=== PATIENT | male | born 1995 | race Caucasian/White ===

== ENCOUNTER 2017-10-12 14:03 | Emergency (ER) | payer OTHER ==
[~2017-10-12] VITALS: Ht 188 cm; Wt 113.9 kg
[2017-10-12 14:05] VITALS: TEMP 36.8; Ht 188 cm; Wt 113.9 kg
[2017-10-12] MEDS ORDERED: LIDOCAINE 1% BUFFERED INJ 20 ML VIAL INFIL STA (14:11)
--- NOTE | 2017-10-12 14:33 | EMERGENCY ROOM VISIT NOTE ---
ED Visit Note First contact with patient: 14:06 CHIEF COMPLAINT: Right fourth and fifth finger lacerations from circular saw HISTORY OF PRESENT ILLNESS: This [id number] 22-year-old male patient presents to the emergency department, ambulatory, approximately 30 minutes after cutting the right fourth and fifth fingers with a circular saw. The bleeding has not stopped. Denies weakness or numbness of the finger. The patient has full range of motion of the fingers. The patient rates the pain as pulsing and 7/10. The patient denies any other injuries. The patient's tetanus shot is up to date. REVIEW OF SYSTEMS: A 6 system review of systems was completed with positives and pertinent negatives listed in the HPI. ALLERGIES: None MEDICATIONS: None PMH: None SOCIAL HISTORY: Patient lives locally with family. He denies drug, alcohol, tobacco use. PHYSICAL EXAM: Vital Signs: Reviewed Nurse's notes, vital signs stable. GENERAL : This is a 22-year-old white male, in no acute distress, well developed, well nourished. SKIN: There is a 1.5 cm long laceration on the dorsal aspect of the right 5th finger. A portion of the nail has been cut off with a jagged portion remaining. The edges gape apart with traction. There is no foreign material in the wound and it looks clean. There is moderate bleeding. There is exposed bone. No deep structures such as tendons, or significant blood vessels are seen in the base of the wound. Extension and flexion of the finger is full and strong. More superficial lacerations of the distal lateral aspect of the right 4th digit. No deep structures seen at the base of the wound. Full range of motion of the wrist and all fingers. Capillary refill less than 2 seconds. Normal sensation to light and sharp touch. RADIOLOGY: R HAND MIN 3 VIEWS ROUTINE CLINICAL HISTORY: RIGHT 4-5 finger laceration, circular saw. COMPARISON: None FINDINGS: Note is made of a comminuted moderately displaced fracture which involves the mid to distal shaft distal tuft of the distal phalanx of the right fifth finger. Soft tissue irregularity suggestive of a laceration of the distal right fourth digit is noted without associated fracture. Carpal bones are intact. No unexpected radiopaque foreign bodies are noted. IMPRESSION: 1. Comminuted, displaced fracture of the distal phalanx of the right fifth finger. 2. Laceration of the right fourth finger with no right fourth finger fracture. Electronically signed by: Lennox Bridges M.D. 10/12/2017 3:46 PM Dictated Date/Time: 10/12/2017 3:43 PM EMERGENCY DEPARTMENT COURSE: I examined the patient. Verbal consent was obtained to perform the procedure. The procedure was performed by the physician assistant therapy aide student. 4 mL's of 1% buffered lidocaine was used to perform a digital block to anesthetize the fourth and fifth digits of the right hand. X-ray performed and reviewed by myself and radiologist as above. Using sterile technique the wound was cleansed with Betadine. A repeat digital block was performed of the right fifth digit using 2 mL 1% buffered lidocaine to anesthetize the patient. The area was sterilely draped. Once the patient was anesthetized, the wound was copiously irrigated under pressure with sterile saline. The wound was explored and there were no deep structures injured. The laceration was repaired using 4 simple interrupted 5-0 nylon sutures on the medial and lateral aspect of the nailbed and 5 simple interrupted 5-0 vicryl sutures to repair the laceration of the nail bed. The patient tolerated the procedure well. Hemostasis was achieved. The area was cleaned with sterile saline and dressed with Xeroform and bandage. The fourth digit was bandaged with bacitracin ointment and a Band-Aid. The patient was given his first dose of Keflex here in the emergency department. A metal cage splint was applied to the wound. I attempted to consult with orthopedics, however there is no unassigned orthopedic surgeon chlorination operator. I did schedule the patient with an appointment for Wednesday of this week with [facility] to see Dr. Alexander for further evaluation and management of the injury. The patient was discharged home in good condition. I attest that I have personally reviewed the patient's current medication list. Patient was found to have normal blood pressure on screening and does not require follow-up. Differential diagnosis includes laceration, contusion, fracture, sprain/strain, tendon or ligament injury, neurovascular compromise, foreign body, assault, and others DIAGNOSIS: Open fracture of the distal phalanx of the right fifth finger, superficial laceration of the right fourth finger The chart was completed utilizing [employer] voice recognition software. Grammatical errors, random word insertions, pronoun errors, and incomplete sentences are an occasional consequence of this system due to software limitations, ambient noise, and hardware issues. Any formal questions or concerns about the content, text, or information contained within the body of this dictation should be directly addressed to the provider for clarification. Current/Historical Medications Scheduled Cephalexin Monohydrate (Keflex), 500 MG PO QID Allergies Coded Allergies: No Known Allergies (Unverified , 10/12/17) Vital Signs Date Time Temp Pulse Resp B/P (MAP) Pulse Ox O2 Delivery O2 Flow Rate FiO2 10/12/17 16:00 67 20 115/76 97 Room Air 10/12/17 14:05 36.8 83 28 137/83 97 Room Air Medications Administered Medications (Trade) Dose Ordered Sig/Ashley Route Start Time Stop Time Status Last Admin Dose Admin Cephalexin Monohydrate (Keflex Cap) 500 mg NOW STAT PO 10/12/17 15:34 10/12/17 15:35 DC 10/12/17 15:38 500 MG Departure Information Impression Primary Impression: Open fracture of distal phalanx of finger of right hand Additional Impressions: Laceration of finger of right hand Laceration of finger nail bed Dispostion Home / Self-Care Condition GOOD Prescriptions Cephalexin Monohydrate (Keflex) 500 Mg Cap 500 MG PO QID for 10 Days, #40 CAP Prov: Marlene Moser PA-C 10/12/17 Referrals Chaka Alexander MD 10/15/17 at 12:15. Patient Instructions ED Fx Finger Open, [facility] Additional Instructions You have received 4 non-absorbable sutures on your right 5th finger. These sutures are NOT dissolvable and WILL need to be removed by a health care provider in 12-14 days. You can return to the Emergency Department or contact your Primary Care Provider to have the sutures removed. You did receive approximately 5 absorbable sutures on the nail bed. These will absorb or fall out on their own. Leave the dressing in place until you are seen by orthopedics. Leave the metal splint in place until you are seen by orthopedics. Do not get the wound or the splint wet. Look for signs of infection of the wound including: increased pain, swelling, foul discharge, streaking, or increased temperature. If any of these are noticed you should return to the Emergency Department for further assessment and treatment. As with any laceration you may have received nerve damage to the surrounding tissues. This damage may or may not be permanent. For pain control, you can use the following [id number] medicines (if >12 yo): Ibuprofen(Motrin, Advil) may be used for fever or pain. Use 600mg every six hours as needed. Take with food. Avoid using more than 2400mg in a 24 hour period. Do not use 2400mg per day for more than three consecutive days without physician direction. Prolonged inappropriate use can lead to stomach upset or ulcers. (AND/OR) Acetaminophen(Tylenol) may be used for fever or pain. Use 1000mg every six hours as needed. Avoid using more than 3000mg in a 24 hour period. You were scheduled an appointment with [facility] with Dr. Alexander , the hand specialist on Wednesday at 1215. Please contact their office today or tomorrow and provide them with the insurance information. You were provided with the phone number. Return to the emergency department if your symptoms worsen despite treatment course outlined above. Problem Qualifiers Primary Impression: Open fracture of distal phalanx of finger of right hand Encounter type: initial encounter Finger: little finger Fracture alignment : displaced Qualified Codes: S62.636B - Displaced fracture of distal phalanx of right little finger, initial encounter for open fracture Additional Impressions: Laceration of finger of right hand Encounter type: initial encounter Finger: ring finger Damage to nail status : without damage Foreign body presence: without foreign body Qualified Codes : S61.214A - Laceration without foreign body of right ring finger without damage to nail, initial encounter Laceration of finger nail bed Encounter type: initial encounter Qualified Codes: S61.319A - Laceration without foreign body of unspecified finger with damage to nail, initial encounter
[2017-10-12] MEDS ORDERED: CEPHALEXIN MONOHYDRATE 250 MG CAP PO STA (15:34)
--- NOTE | 2017-10-12 15:47 | DIAGNOSTIC IMAGING REPORT ---
R HAND MIN 3 VIEWS ROUTINE CLINICAL HISTORY: RIGHT 4-5 finger laceration, circular saw. COMPARISON: None FINDINGS: Note is made of a comminuted moderately displaced fracture which involves the mid to distal shaft distal tuft of the distal phalanx of the right fifth finger. Soft tissue irregularity suggestive of a laceration of the distal right fourth digit is noted without associated fracture. Carpal bones are intact. No unexpected radiopaque foreign bodies are noted. IMPRESSION: 1. Comminuted, displaced fracture of the distal phalanx of the right fifth finger. 2. Laceration of the right fourth finger with no right fourth finger fracture. Electronically signed by: Lennox Bridges M.D. 10/12/2017 3:46 PM Dictated Date/Time: 10/12/2017 3:43 PM
[2017-10-12 16:00] VITALS: BP 115/76; PULSE 67; O2SAT 97
[2017-10-12] MEDS ORDERED: CEPH500C PO (16:42)
[2017-10-12] MEDS ORDERED: GELATIN SPONGE 12-7MM EXT STA (16:42)
== END 2017-10-12 17:04 | disposition home or self-care (01) ==
LOC: C.EDB 14:05 → C.EDD 17:04
DX: S62.636B Displaced fracture of distal phalanx of right little finger, initial encounter for open fracture (principal); S61.214A Laceration without foreign body of right ring finger without damage to nail, initial encounter; S61.319A Laceration without foreign body of unspecified finger with damage to nail, initial encounter; W31.2XXA Contact with powered woodworking and forming machines, initial encounter